=== PATIENT | male | born 1995 | race Caucasian/White ===

== ENCOUNTER 2024-06-02 16:57 | Emergency (ER) | payer MEDICAID ==
[~2024-06-02] VITALS: Ht 177.8 cm; Wt 81.8 kg
[2024-06-02] MEDS ORDERED: CYCL-1 PO (17:45)
[2024-06-02] MEDS ORDERED: LIDO700A32 TOP (17:45)
[2024-06-02] MEDS: cyclobenzaprine 10mg tablet PO ONE (18:02)
[2024-06-02] MEDS: dexamethasone sod phosphate 10mg/ml inj IM STA (18:02)
[2024-06-02] MEDS: ketorolac trometh. 30mg/ml inj. IM ONE (18:03)
[2024-06-02 18:14] VITALS: BP 119/85; PULSE 72; RESP 18; TEMP 97.9; O2SAT 99
== END 2024-06-02 18:10 | disposition home or self-care (01) ==
LOC: ER 16:58
DX: S39.012A Strain of muscle, fascia and tendon of lower back, initial encounter (principal); Z79.899 Other long term (current) drug therapy; X58.XXXA Exposure to other specified factors, initial encounter; Y93.89 Activity, other specified; Y92.89 Other specified places as the place of occurrence of the external cause; Y99.8 Other external cause status
CPT/HCPCS: 72100; 96372; 99284; J1100; J1885